=== PATIENT | female | born 1975 | race Caucasian/White ===

== ENCOUNTER 2018-03-01 11:44 | Emergency (ER) | payer BC ==
[~2018-03-01] VITALS: Ht 162.6 cm; Wt 147.0 kg
[~2018-03-01 11:44] MED LIST: ALBU18HF PO; ALPR0.25 PO; DOCU-131 PO; FLUO40CA2 PO; HYDR25TA6 PO; IBUP-1223 PO; LISI1TAB5 PO; LORA-445 PO; LOSA1TAB19 PO; LOSA50TA6 PO; NITR100C56 PO; ONDA8TAB9 PO; OXYC5TAB2 PO
[2018-03-01 11:46] VITALS: BP 180/111
[2018-03-01] MEDS ORDERED: DIPH,PERTUSS(ACELL),TET VAC/PF 0.5 ML IM-VACC ONE ×2 (13:00→13:12)
[2018-03-01] MEDS ORDERED: BACITRACIN ZINC OINT 500U/GM, 0.9 GM ONE (13:12)
[2018-03-01] MEDS ORDERED: OXYcodone/APAP 5/325MG TABLET PO ONE (13:30)
[2018-03-01] MEDS ORDERED: OXYcodone/APAP 5/325MG TABLET ONE (13:32)
== END 2018-03-01 13:38 | disposition home or self-care (01) ==
LOC: ED 13:32
DX: S61.300A Unspecified open wound of right index finger with damage to nail, initial encounter (principal); I10 Essential (primary) hypertension; F32.9 Major depressive disorder, single episode, unspecified; F17.200 Nicotine dependence, unspecified, uncomplicated; Z90.710 Acquired absence of both cervix and uterus; W10.9XXA Fall (on) (from) unspecified stairs and steps, initial encounter; Y93.89 Activity, other specified; Y99.8 Other external cause status; Y92.89 Other specified places as the place of occurrence of the external cause
CPT/HCPCS: 90471; 90715

== ENCOUNTER → 2018-12-14 | Outpatient (CLI) | payer BC ==
[~2018-12-14] MED LIST changes: +GADOBUTROL 10 MMOL/10 ML PFS ONE; +LOSA50TA14 PO; -LOSA50TA6 PO
== END | disposition home or self-care (01) ==
LOC: CFH 08:18
PROVIDERS: ATTEND Registered Nurse
DX: G43.711 Chronic migraine without aura, intractable, with status migrainosus (principal); J34.89 Other specified disorders of nose and nasal sinuses
CPT/HCPCS: 70553; A9585

== ENCOUNTER 2020-08-10 01:42 | Emergency (ER) | payer BC ==
[~2020-08-10] VITALS: Ht 162.6 cm; Wt 175.0 kg
[~2020-08-10 01:42] MED LIST changes: -GADOBUTROL 10 MMOL/10 ML PFS ONE; +LISI1TAB39 PO; -LISI1TAB5 PO
[2020-08-10] MEDS ORDERED: KETOROLAC 30 MG/1 ML IM ONE (02:00)
[2020-08-10] MEDS ORDERED: KETOROLAC 30 MG/1 ML ONE (02:07)
[2020-08-10] MEDS ORDERED: HYDROcodone/APAP 5/325 TABLET ONE (02:27)
[2020-08-10] MEDS ORDERED: HYDROcodone/APAP 5/325 TABLET PO ONE (02:30)
[2020-08-10 03:55] VITALS: BP 146/87
== END 2020-08-10 03:56 | disposition home or self-care (01) ==
LOC: ED 02:12
DX: S92.352A Displaced fracture of fifth metatarsal bone, left foot, initial encounter for closed fracture (principal); I10 Essential (primary) hypertension; J45.909 Unspecified asthma, uncomplicated; F17.210 Nicotine dependence, cigarettes, uncomplicated; Z90.710 Acquired absence of both cervix and uterus; W01.0XXA Fall on same level from slipping, tripping and stumbling without subsequent striking against object, initial encounter; Y93.89 Activity, other specified; Y92.009 Unspecified place in unspecified non-institutional (private) residence as the place of occurrence of the external cause; Y99.8 Other external cause status
CPT/HCPCS: 29515; 73610; 73630; 96372; 99284; 99406; J1885

== ENCOUNTER 2020-08-21 06:14 | Day surgery (SDC) | payer BC ==
[~2020-08-21] VITALS: Ht 162.6 cm; Wt 133.3 kg
[2020-08-21 07:07] VITALS: BP 133/86
[2020-08-21] MEDS ORDERED: MIDAZOLAM 1 MG/ML, 2ML ONE (07:13)
[2020-08-21] MEDS ORDERED: CHLORHEXIDINE 15 ML UDC MM STA (07:13)
[2020-08-21] MEDS ORDERED: FENTANYL PF 100 MCG/2ML ONE ×3 (07:13→09:45)
[2020-08-21] MEDS ORDERED: LACTATED RINGERS 1,000 ML IV SCH (07:14)
[2020-08-21] MEDS ORDERED: ALPR0.5T7 PO (07:19)
[2020-08-21] MEDS ORDERED: TRAZ-175 PO (07:19)
[2020-08-21] MEDS ORDERED: SUMA100T3 PO (07:19)
[2020-08-21 08:02] LABS: ALBUMIN 3.4 g/dL (3.4-5.0); ANION GAP 6 mmol/L (5-15); CALCIUM 9.3 mg/dL (8.5-10.1); CHLORIDE 109 mmol/L (98-107)
[2020-08-21 08:06] LABS: ALANINE AMINOTRANSFERASE 17 U/L (12-78); ALKALINE PHOSPHATASE 60 U/L (45-117); BILIRUBIN,TOTAL 0.2 mg/dL (0.2-1.0); CREATININE 0.65 mg/dL (0.55-1.02); TOTAL PROTEIN 7.2 g/dL (6.4-8.2)
[2020-08-21] MEDS ORDERED: CEFAZOLIN 1,000 MG ONE (08:28)
[2020-08-21] MEDS ORDERED: ONDANSETRON 2MG/ML, 2ML ONE (08:28)
[2020-08-21] MEDS ORDERED: DEXAMETHASONE 4 MG/ML, 1ML ONE (08:28)
[2020-08-21] MEDS ORDERED: PROPOFOL 10 MG/ML, 20ML ONE (08:28)
[2020-08-21] MEDS ORDERED: OXYcodone 5 MG/5 ML ORAL.SOL UDC PO PRN (09:00)
[2020-08-21] MEDS ORDERED: ACETAMINOPHEN 325 MG TABLET PO PRN (09:00)
[2020-08-21] MEDS ORDERED: LABETALOL 5MG/ML, 20ML IV PRN (09:00)
[2020-08-21] MEDS ORDERED: hydrALAzine 20 MG/ML, 1ML IV PRN (09:00)
[2020-08-21] MEDS ORDERED: ONDANSETRON 2MG/ML, 2ML IVPush PRN (09:00)
[2020-08-21] MEDS: FENTANYL PF 100 MCG/2ML IV PRN ×2 (09:45→09:50)
[2020-08-21] MEDS ORDERED: OXYcodone 5 MG/5 ML ORAL.SOL UDC ONE (09:45)
[2020-08-21] MEDS ORDERED: HYDROmorphone 1 MG/ML, 1ML INJ ONE (09:52)
[2020-08-21] MEDS: HYDROmorphone 1 MG/ML, 1ML INJ IVPush PRN ×2 (09:55→10:00)
== END 2020-08-21 11:15 | disposition home or self-care (01) ==
LOC: OUT 06:14
PROVIDERS: ATTEND Orthopaedic Surgery Foot and Ankle Surgery
DX: S93.432A Sprain of tibiofibular ligament of left ankle, initial encounter (principal); Z20.828 Contact with and (suspected) exposure to other viral communicable diseases; S93.422A Sprain of deltoid ligament of left ankle, initial encounter; S92.352A Displaced fracture of fifth metatarsal bone, left foot, initial encounter for closed fracture; G89.18 Other acute postprocedural pain; M25.372 Other instability, left ankle; M65.872 Other synovitis and tenosynovitis, left ankle and foot; M25.772 Osteophyte, left ankle; M19.90 Unspecified osteoarthritis, unspecified site; J45.909 Unspecified asthma, uncomplicated; I10 Essential (primary) hypertension; Z82.61 Family history of arthritis; Z82.3 Family history of stroke; Z82.49 Family history of ischemic heart disease and other diseases of the circulatory system; X50.1XXA Overexertion from prolonged static or awkward postures, initial encounter; W18.39XA Other fall on same level, initial encounter; Y93.89 Activity, other specified; Y92.89 Other specified places as the place of occurrence of the external cause; Y99.8 Other external cause status
CPT/HCPCS: 27695; 27829; 29898; 36415; 64445; 64447; 73600; 80053; 87635; C1713; J0690; J1100; J1170; J2250; J2405; J2704; J3010; J7120; 76000

== ENCOUNTER 2021-05-20 12:42 | Emergency (ER) | payer BC ==
[~2021-05-20] VITALS: Ht 162.6 cm; Wt 135.4 kg
[~2021-05-20 12:42] MED LIST changes: +ALPR0.5T7 PO; +SUMA100T3 PO; +TRAZ-175 PO
[2021-05-20] MEDS ORDERED: HYDROmorphone 1 MG/ML, 1ML INJ IV ONE (13:30)
[2021-05-20] MEDS ORDERED: SODIUM CHLORIDE FLUSH 10ML SYR IVF ONE (13:30)
[2021-05-20] MEDS ORDERED: ONDANSETRON 2MG/ML, 2ML IVPush ONE (13:30)
[2021-05-20] MEDS ORDERED: HYDROmorphone 1 MG/ML, 1ML INJ ONE (14:04)
[2021-05-20] MEDS ORDERED: ONDANSETRON 2MG/ML, 2ML ONE (14:04)
[2021-05-20] MEDS ORDERED: ESCI20TA10 PO (14:15)
[2021-05-20 14:19] LABS: BASOPHILS % (AUTO) 1 % (0-1); EOSINOPHILS % (AUTO) 3 % (1-7); LYMPHOCYTES % (AUTO) 33 % (22-44); MEAN CORPUSCULAR HEMOGLOBIN 32.6 pg (27.0-34.8); MEAN CORPUSCULAR HGB CONC 34.4 g/dL (32.4-35.8); MEAN PLATELET VOLUME 9.3 fL (7.4-10.4); MONOCYTES % (AUTO) 10 % (2-9); NEUTROPHILS % (AUTO) 54 % (42-75); PLATELET COUNT 170 x10^3/uL (130-400); RED BLOOD COUNT 4.22 x10^6/uL (3.82-5.3); RED CELL DISTRIBUTION WIDTH 13.3 % (9.6-15.2)
--- NOTE | 2021-05-20 14:19 | NUR ---
TASK RN. IV PLACED, MEDS GIVEN PER ERP ORDER FOR 8/10 ABD PAIN WITH NAUSEA. PT AMBULATORY TO BR WITH STEADY GAIT TO PROVIDE URINE SPECIMEN.
[2021-05-20 14:27] LABS: ALANINE AMINOTRANSFERASE 22 U/L (12-78); ALBUMIN 3.3 g/dL (3.4-5.0); ANION GAP 5 mmol/L (5-15); CALCIUM 8.9 mg/dL (8.5-10.1); CHLORIDE 107 mmol/L (98-107); CREATININE 0.51 mg/dL (0.55-1.02)
[2021-05-20 14:31] LABS: ALKALINE PHOSPHATASE 59 U/L (45-117); BILIRUBIN,TOTAL 0.3 mg/dL (0.2-1.0); TOTAL PROTEIN 6.9 g/dL (6.4-8.2); TROPONIN I < 0.015 ng/mL (0.000-0.045)
--- NOTE | 2021-05-20 14:34 | NUR ---
URINE COLLECTED/SENT TO LAB. CALL LIGHT WITHIN REACH.
[2021-05-20 14:46] LABS: MICROSCOPIC AUTO
--- NOTE | 2021-05-20 15:30 | NUR ---
PT TO CT. DENIES CP OR N/V
[2021-05-20] MEDS ORDERED: OMNIPAQUE 350 MG/ML, 150 ML BOTTLE ONE (16:07)
--- NOTE | 2021-05-20 16:15 | NUR ---
PT RESTING, DENIES PAIN. SEEN BY MD. BLAKE TO SHA.
[2021-05-20 16:51] VITALS: BP 142/76
--- NOTE | 2021-05-20 16:52 | NUR ---
Patient given discharge instructions and they have confirmed that they understand the instructions. Patient ambulatory with steady gait.
== END 2021-05-20 16:54 | disposition home or self-care (01) ==
LOC: ED 13:12
DX: R10.31 Right lower quadrant pain (principal); R11.0 Nausea; I10 Essential (primary) hypertension; J45.909 Unspecified asthma, uncomplicated
CPT/HCPCS: 36415; 71045; 74177; 80053; 81001; 83605; 83690; 84484; 85025; 87086; 93005; 96374; 96375; 99285; J1170; J2405; Q9967